=== PATIENT | male | born 1935 | race Caucasian/White ===

== ENCOUNTER 2021-01-02 18:14 | Emergency (ER) | payer OTHER ==
[~2021-01-02] VITALS: Ht 167.6 cm; Wt 90.7 kg
[~2021-01-02 18:14] MED LIST: ASPRIMOX 325 M325 MG; ZOCOR 20 MG TAB20 M1
[2021-01-02] MEDS ORDERED: LIPITOR40 MG PO (18:42)
[2021-01-02] MEDS ORDERED: FLOMAX0.4 MG PO (18:43)
[2021-01-02] MEDS ORDERED: OMEPRAZOLE 20 M20 M1 PO (18:43)
[2021-01-02] MEDS ORDERED: ZETIA10 MG PO (18:43)
[2021-01-02] MEDS ORDERED: VIT D PO (18:43)
[2021-01-02 18:49] LABS: ABSOLUTE NEUTROPHILS 7.4 thou/uL (1.4-8.2); BASOPHILS 0.8 % (0.0-2.0); EOSINOPHILS 6.4 % (0.0-3.0); HEMATOCRIT 45.1 % (42.0-52.0); HEMOGLOBIN 14.9 gm/dL (14.0-18.0); LYMPHOCYTES 15.7 % (24.0-44.0); MCH 27.8 pg (26.0-34.0); MCV 84.3 fL (80.0-100.0); PLATELET COUNT 185 thou/uL (150-400); POLYS 69.1 % (36.0-66.0); RBC 5.35 mil/uL (4.50-6.00); RDW 14.2 % (10.5-14.5); WBC 10.7 thou/uL (4.0-11.0)
[2021-01-02 19:00] LABS: ANION GAP 7 mmol/L (7-16); BUN 19 mg/dL (7-18); CALCIUM 8.4 mg/dL (8.5-10.1); CHLORIDE 104 mmol/L (98-107); CO2 28 mmol/L (21-32); CREATININE 0.9 mg/dL (0.7-1.3); GLUCOSE 100 mg/dL (74-106); POTASSIUM 4.5 mmol/L (3.5-5.1); SODIUM 139 mmol/L (136-145)
[2021-01-02 19:10] LABS: ALBUMIN 3.4 g/dL (3.4-5.0); MAGNESIUM 2.3 mg/dL (1.8-2.4); SGOT 25 U/L (15-37); SGPT 19 U/L (30-65); TOTAL BILIRUBIN 0.4 mg/dL (0.2-1.0); TOTAL PROTEIN 7.5 g/dL (6.4-8.2); TROPONIN-I <0.06 ng/mL (<0.06)
[2021-01-02 21:03] VITALS: BP 127/71
--- NOTE | 2021-01-03 09:51 | EKG ---
[facility] [place] [address] ELECTROCARDIOGRAM REPORT Name: NORMA SMITH Room #: DEP Abimael#: [id number] Admission: 01/02/21 Attend Phys: Discharge: 01/02/21 Date of : 37 Report #: [id number] [facility] ED Test Date: 2021-01-02 Test Time: 18:19:20 Pat Name: NORMA SMITH Department: Room: Gender: M Audit Clerk: : 1935 Requested By: Shailesh Hickey Order Number: [id number] MD: Jamie Moreira Measurements Intervals Elbert Rate: 94 P: 17 WV: 210 QRS: -99 QRSD: 121 T: 30 QT: 379 QTc: 474 Interpretive Statements Sinus rhythm Ventricular premature complex Borderline prolonged WV interval Probable left atrial enlargement Right bundle branch block Inferior infarct, old Lateral leads are also involved No previous ECG available for comparison Electronically Signed On 01-03-2021 9:51:03 CDT by Jamie Moreira [email or web address] <ELECTRONICALLY SIGNED> By: Jamie Moreira MD, [facility] 01/03/21 0951 1819 1819 Jamie Moreira MD, FACC /EPI
== END 2021-01-02 21:04 | disposition home or self-care (01) ==
LOC: ER 18:14
PROVIDERS: Emergency Medicine
DX: I48.91 Unspecified atrial fibrillation (principal); E78.00 Pure hypercholesterolemia, unspecified